=== PATIENT | female | born 2000 | race Caucasian/White ===

== ENCOUNTER 2023-02-18 05:58 | Day surgery (SDC) | payer OTHER ==
[2023-02-18] VITALS (8 sets, daily range): BP systolic 116–133; BP diastolic 77–95
[~2023-02-18] VITALS: Ht 172.7 cm; Wt 61.6 kg
[~2023-02-18 05:58] MED LIST: CLIN30GE2 TOP; DIHY1SPR INH; DOXY-224 PO; EREN70AU2 SUBCUT; KETO30VI INH; LAMO25TA72 PO; UBRO100T; ZOLM5SPR6; famotidine 20mg tablet PO ONE; oxymetazoline 15 ML nasal spray NS ONE; ringers solution, lacted 1,000 ML IV SCH; tranexamic acid inj. 1,000 MG in normal saline IV soln 100ML IV ONE
[2023-02-18] MEDS ORDERED: cocaine 4% topical solution 4ml bottle ONE (06:48)
[2023-02-18] MEDS ORDERED: oxymetazoline 15 ML nasal spray NS ONE (06:49)
[2023-02-18] MEDS ORDERED: tranexamic acid 100mg/ml inj. ONE (06:49)
[2023-02-18] MEDS ORDERED: LIDOcaine 1% W/epiNEPHrine 1:100,000 20ml vial ONE (06:49)
[2023-02-18] MEDS ORDERED: mupirocin 2% ointment 22GM ONE (06:49)
[2023-02-18] MEDS ORDERED: fentaNYL/PF 50MCG/1 ML 2ML syringe ONE (07:58)
[2023-02-18] MEDS ORDERED: midazolam 1 mg/ML 2ml injection ONE (07:58)
[2023-02-18] MEDS ORDERED: dexamethasone sod phosphate 4mg/ml inj. ONE (07:59)
[2023-02-18] MEDS ORDERED: ondansetron/PF 4mg/2ml inj ONE (07:59)
[2023-02-18] MEDS ORDERED: propofol inj 20 ML IV ONE (07:59)
[2023-02-18] MEDS ORDERED: sevoflurane 250ml liquid IH ONE (08:04)
[2023-02-18] MEDS ORDERED: morphine 4 MG/ML inj SYRINge IV PRN (08:05)
[2023-02-18] MEDS ORDERED: morphine 2 MG/ML inj. syringe IV PRN (08:05)
[2023-02-18] MEDS ORDERED: labetalol 20mg/4ml (5mg/ml) syringe IV PRN (08:05)
[2023-02-18] MEDS ORDERED: ondansetron/PF 4mg/2ml inj IV PRN (08:05)
[2023-02-18] MEDS ORDERED: meperidine/PF 25mg/ml syringe IV PRN ×2 (08:05)
[2023-02-18] MEDS ORDERED: hydrALAZINE 20mg/ml inj. IV PRN (08:05)
[2023-02-18] MEDS ORDERED: ringers solution, lacted 1,000 ML IV SCH (08:05)
--- NOTE | 2023-02-18 09:47 | NUR ---
Received from OR via , accompanied by Anesthesiologist DR CHEEK and report given by Anesthesiolgist. PT IS SLEEPING BUT OPENS EYES TO VOICE, SKIN WARM AND PINK, LEFT AC HAS PATENT IV, MOVING EXT X 4, NO C/O PAIN, NASAL PACKING IN PLACE.
--- NOTE | 2023-02-18 10:37 | NUR ---
PT MEETS DISCHARGE CRITERIA. PT IS AWAKE, ALERT, UP INDEP'LYM NO C/O PAIN, COTTONOIDS REMOVED, SCANT AMOUNT OF DRAINAGE WITH NASAL DRESSING IN PLACE, MELISA ICE WATER, DISCHARGE INSTRUCTIONS REVIEWED AND SENT WITH PT AND MOTHER. TAKEN TO CAR VIA W/C. EXTRA 4X4'S, NASAL SPRAY, MUPIROCIN AND NASAL LAVAGE SENT WITH PT.
== END 2023-02-18 10:37 | disposition home or self-care (01) ==
LOC: PAS 05:58
PROVIDERS: ATTEND Otolaryngology
DX: J34.2 Deviated nasal septum (principal); J34.3 Hypertrophy of nasal turbinates; J32.8 Other chronic sinusitis; Z20.822 Contact with and (suspected) exposure to COVID-19; Z98.890 Other specified postprocedural states; Z79.899 Other long term (current) drug therapy
CPT/HCPCS: 30140; 30520; 31240; 31254; 31256; 61782; 82948; 87811; A6402; J1100; J2250; J2405; J2704; J3010; J3490; J7030; J7050; J7120; Z7506; Z7508; Z7512; A4618; A6449; A7000